=== PATIENT | male | born 2000 | race Hispanic/Latino ===

== ENCOUNTER → 2022-08-21 | Outpatient (CLI) | payer BC ==
[~2022-08-21] MED LIST: GADOTERATE MEGLUMINE 10 MMOL/20 ML VIAL IV ONE
== END | disposition home or self-care (01) ==
LOC: RAH 14:36
PROVIDERS: ATTEND Internal Medicine
DX: E22.1 Hyperprolactinemia (principal)
CPT/HCPCS: 70553; A9575